=== PATIENT | male | born 1995 | race American Indian/Alaskan Native ===

== ENCOUNTER 2017-10-26 19:59 | Emergency (ER) | payer SELFPAY ==
[2017-10-26 20:30] VITALS: BP 159/95; PULSE 77; RESP 19; TEMP 98; O2SAT 99
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
== END 2017-10-26 22:53 | disposition home or self-care (01) ==
LOC: H.ER 19:59
DX: S02.2XXA Fracture of nasal bones, initial encounter for closed fracture (principal); Y04.0XXA Assault by unarmed brawl or fight, initial encounter; Y92.89 Other specified places as the place of occurrence of the external cause; F17.200 Nicotine dependence, unspecified, uncomplicated